=== PATIENT | male | born 1965 | race Caucasian/White ===

== ENCOUNTER 2016-12-26 15:51 | Observation (INO) | payer OTHER ==
[~2016-12-26] VITALS: Ht 177.8 cm; Wt 90.2 kg
--- NOTE | 2016-12-26 16:24 | DIAGNOSTIC IMAGING REPORT ---
PROCEDURE: XR CHEST 1 VIEW INDICATION: CHEST PAIN TECHNIQUE: Portable AP view 04:13 p.m. COMPARISON: None. FINDINGS: Lungs are clear. Heart and mediastinum are normal. Thorax is normal. IMPRESSION: 1. Negative chest.
--- NOTE | 2016-12-26 16:49 | ED CLINICAL REPORT ---
Clinical Report - Physicians/Mid Levels [facility] [address] [place] [address] 12/26/2016 15:53 Patient: CHRISTIAN RUSH Time Seen: 16:04. Arrived- By private vehicle. Historian- patient. History limited by vague historian. HISTORY OF PRESENT ILLNESS Chief Complaint: CHEST PAIN. This started today about 1 hour ago and is still present. It was abrupt in onset and has been constant and waxing/waning. Onset during moderate exertion. At its maximum, severity described as 5 / 10. When seen in the E.D., it was almost gone. It is described as pressure and sharp and it is described as located in the left chest area and radiating to the upper back and to the right upper extremity. The patient has had difficulty breathing and has experienced diaphoresis. Similar symptoms previously: Diagnosis: [place]. REVIEW OF SYSTEMS No chills, fever, cough, abdominal pain or constipation. No diarrhea, nausea, vomiting or urinary problems. He has experienced sweats and had dizziness. He has had moderate calf pain involving the right leg (recently). All systems otherwise negative, except as recorded above. PAST HISTORY Problems: Myocardial Infarction. Heart Disease. Medications: None. Allergies: Aspirin. Probable Moderate (Upset stomach.) Penicillins. SOCIAL HISTORY Current every day light tobacco smoker (cigarette)- less than 1/2 a pack per day. Occasional alcohol use. History of occasional drug use: marijuana. FAMILY HISTORY Premature onset heart disease in first-degree relative (mother). ADDITIONAL NOTES The nursing notes have been reviewed. PHYSICAL EXAM Vital Signs: 12/26/2016 15:57 BP: 134/70. HR: 66. RR: 28. O2 saturation: 99%. Temp: 98.3 F. Pain level now: 4/10. Have been reviewed. Appearance: Alert. Eyes: Pupils equal, round and reactive to light. ENT: Pharynx normal. Neck: Normal inspection. Neck supple. CVS: Normal heart rate and rhythm. Heart sounds normal. Respiratory: No respiratory distress. Breath sounds normal. Abdomen: Soft and nontender. Bowel sounds normal. No organomegaly. No mass. Skin: Skin warm. Normal skin color. Normal skin turgor. Diaphoresis. Extremities: Extremities exhibit normal ROM. No calf tenderness. No lower extremity edema. LABS, X-RAYS, AND EKG EKG: Normal EKG. Rate: 70. Prior EKG unavailable. The study has been independently viewed by me. Chest X-ray: No acute disease. The X-rays were independently viewed by me. Laboratory Tests: UA-Culture if indicated: (XANDER: 12/26/2016 16:45) ( [facility] 12/26/2016 17:26) Final results Test Result Flag Units (Reference) URINE COLOR YELLOW URINE APPEARANCE CLEAR URINE GLUCOSE NEGATIVE (NEGATIVE) URINE BILIRUBIN NEGATIVE (NEGATIVE) URINE KETONE NEGATIVE (NEGATIVE) URINE SPECIFIC GRAVITY <= 1.005 L (1.010-1.030) URINE PH 5.5 (5.0-8.0) URINE PROTEIN NEGATIVE (NEGATIVE) URINE UROBILINOGEN 0.2 EU/dL (0.2-1.0) URINE NITRITE NEGATIVE (NEGATIVE) URINE BLOOD NEGATIVE (NEGATIVE) URINE LEUK ESTERASE NEGATIVE (NEGATIVE) URINE RBC RARE rbc/hpf (0-1) URINE WBC 0-1 wbc/hpf (0-1) URINE EPITHELIAL CELLS RARE EPI/hpf (0-5) URINE BACTERIA NONE SEEN (NONE SEEN) URINE COMMENT CULT NOT INDICATED URINE CULTURES ARE SET-UP BASED ON THE FOLLOWING CRITERIA:POSITIVE NITRITEPOSITIVE LEUKOCYTE ESTERASEGREATER THAN 10 WHITE BLOOD CELLSMODERATE (2+) OR GREATER BACTERIA CBC w Diff: (XANDER: 12/26/2016 16:01) ( [facility] 12/26/2016 16:31) Final results Test Result Flag Units (Reference) WHITE BLOOD COUNT 7.7 K/uL (4.5-11.5) RED BLOOD COUNT 5.05 M/uL (4.50-5.90) HEMOGLOBIN 15.4 gm/dL (13.5-17.5) HEMATOCRIT 45.5 % (41.0-53.0) MEAN CELL VOLUME 90 fL (80-100) MEAN CORPUSCULAR HGB 31 pg (26-34) MEAN CORPUSCULAR HGB CONC 34 g/dL (31-37) RED CELL DISTRIBUTION WIDTH 13.3 % (11.6-14.8) PLATELET COUNT 208 K/uL (150-400) NEUTROPHIL % 51.2 % (50-75) LYMPH % 24.8 L % (25-40) MONO % 19.3 H % (3-14) EOSINOPHIL % 4.0 % (0-4) BASOPHIL % 0.7 % (0-2) PT with INR: (XANDER: 12/26/2016 16:01) ( [facility] 12/26/2016 16:20) Final results Test Result Flag Units (Reference) INR 0.9 (0.8-1.2) Low Intensity Therapy: INR 1.5-2.0 PT range 18.5-23.1Mod.Intensity Therapy: INR 2.0-3.0 PT range 23.1-31.5High Intensity Therapy: INR 2.5-3.5 PT range 27.4-35.5High Intensity Therapy 2: INR 3.0-4.0 PT range 31.5-39.3 APTT 28 SECONDS (24-34) D-DIMER QUANTITATIVE < 0.27 L ug/mLFEU (0.27-0.52) The primary value of this quantitative assay relates toits negative predictive value (i.e. exclusion) of pulmonaryembolism/deep vein thrombosis/DIC.Elevated levels of d-dimer may also occur with:, age, cancer, inflammation, liver disease,post-op, infection, hematoma, coronary disease, peripheralarteriopathy, bleeding disorders and thrombolytic treatment.Results should be correlated with other clinical andradiological data.Testing Methodology: Latex Immunoassay TSH: (XANDER: 12/26/2016 16:01) ( [facility] 12/26/2016 19:06) Final results Test Result Flag Units (Reference) THYROID STIMULATING HORMONE 1.586 uIU/mL (0.34-3.74) CPK: (XANDER: 12/26/2016 20:00) ( [facility] 12/26/2016 20:38) Final results Test Result Flag Units (Reference) CPK 159 U/L (24-260) TROPONIN I <0.05 L ng/mL (0.00-1.5) TROPONIN REFERENCE RANGE:<0.1 NEGATIVE0.1-1.5 INDETERMINANT>1.5 POSITIVE BNP: (XANDER: 12/26/2016 16:01) ( [facility] 12/26/2016 16:35) Final results Test Result Flag Units (Reference) B-TYPE NATRIURETIC PEPTIDE < 5.0 L pg/ml (5-100) CMP: (XANDER: 12/26/2016 16:01) ( [facility] 12/26/2016 16:41) Final results Test Result Flag Units (Reference) GLUCOSE 88 mg/dL (70-110) BUN 16 mg/dL (7-18) CREATININE 1.1 mg/dL (0.6-1.3) Estimated GFR >60 mL/min Estimated GFR- >60 mL/min Note: Persistent reduction over 3 months in eGFR<60 mL/min/1.73 m2 defines CKD. Patients with eGFR values>=60 mL/min/1.73 m2 may also have CKD if evidence ofpersistent proteinuria. Additional information may be foundat www.kidney.org. SODIUM 142 mmol/L (136-145) POTASSIUM 3.7 mmol/L (3.5-5.1) CHLORIDE 106 mmol/L (98-107) CARBON DIOXIDE 24 mmol/L (21-32) CALCIUM 8.7 mg/dL (8.5-10.1) TOTAL PROTEIN 6.8 g/dL (6.4-8.2) ALBUMIN 3.9 g/dL (3.3-5.0) BILIRUBIN, TOTAL 0.7 mg/dL (0.0-1.0) ALKALINE PHOSPHATASE 99 U/L (46-116) AST (SGOT) 23 U/L (15-37) ALT (SGPT) 35 U/L (12-78) LIPASE 147 U/L (73-393) AMYLASE 67 U/L (25-115) CPK 191 U/L (24-260) TROPONIN I <0.05 L ng/mL (0.00-1.5) TROPONIN REFERENCE RANGE:<0.1 NEGATIVE0.1-1.5 INDETERMINANT>1.5 POSITIVE . PROGRESS AND PROCEDURES Course of Care: 18:29 12/26/16. on the electronic device monitor the patient had a brief event of what appears to be atrial flutter. When I discussed this with him he did report that he had some mild palpitations at that time. I reexamined him and my findings were consistent with those previously noted. Discussed case with hospitalist, (Barbie). Reviewed test results and need for additional work-up. Agreed upon decision to place in observation. Patient/family counseled. Old medical records reviewed. (From [facility] in [place]). Disposition: Observation. CLINICAL IMPRESSION Chest pain. Atrial flutter. (Electronically signed by Alton Raza MD 12/27/2016 9:01)
--- NOTE | 2016-12-26 16:49 | ED ORDER SUMMARY ---
..... Patient: CHRISTIAN RUSH OrderSheet [facility] VisitID: [id number] [address] [place] [address] 51y, M Registration Date/Time: 12/26/2016 ORDER SHEET Weight: 90.2 kg Allergies: Penicillins, Aspirin GENERAL ORDERS: Chest 1V Urgent (16:05 12/26/2016 Fina ANDERSON) (Ack 16:08 Humaira) (16:15 omanelli R.N.) Fourdrinier Operator (Continuous) (16:05 12/26/2016 Fina ANDERSON) (16:08 AMcQuoid ER Tech1) CBC w Diff Urgent (16:05 12/26/2016 Fina ANDERSON) (Ack 16:08 Humaira) (16:13 ASchmuck) (16:14 JRomanelli R.N.) CMP Urgent (16:12/26/2016 Fina ANDERSON) (Ack 16:08 Humaira) (16:13 ASchmuck) (16:15 JRomanelli R.N.) UA-Culture if indicated Urgent (16:05 12/26/2016 Fina ANDERSON) (Ack 16:08 Humaira) (17:02 Francescoelli R.N.) PT with INR Urgent (16:05 12/26/2016 Fina ANDERSON) (Ack 16:08 Humaira) (16:13 ASchmuck) (16:15 omanelli R.N.) PTT Urgent (16:05 12/26/2016 Fina ANDERSON) (Ack 16:08 Humaira) (16:13 ASchmuck) (16:15 JRomanelli R.N.) BNP Urgent (16:05 12/26/2016 Fina ANDERSON) (Ack 16:08 Humaira) (16:13 ASchmuck) (16:15 omanelli R.N.) D-Dimer Urgent (16:05 12/26/2016 Fina ANDERSON) (Ack 16:08 Humaira) (16:13 ASchmuck) (16:15 omanelli R.N.) Amylase Urgent (16:05 12/26/2016 Fina ANDERSON) (Ack 16:08 Humaira) (16:13 ASchmuck) (16:15 Gagandeep R.N.) Lipase Urgent (16:05 12/26/2016 Fina ANDERSON) (Ack 16:08 Humaira) (16:13 ASchmuck) (16:15 Francescoelli R.N.) CPK Urgent (16:05 12/26/2016 Fina ANDERSON) (Ack 16:08 Humaira) (16:13 ASchmahsan) (16:15 Gagandeep R.N.) Troponin-I Urgent (16:05 12/26/2016 Fina ANDERSON) (Ack 16:08 Humaira) (16:13 ASchmahsan) (16:15 Gagandeep R.N.) Oxygen (2 L/min) (NC) (16:05 12/26/2016 Fina ANDERSON) (16:08 AMcQuoid ER Tech1) Pulse oximeter (16:05 12/26/2016 Fina ANDERSON) (16:07 AMcQuoid ER Tech1) EKG - ER Stat (16:05 12/26/2016 Fina ANDERSON) (16:07 AMcQuoid ER Tech1) (Ack 16:08 Humaira) CPK (Draw 4 hours after the initial set) Urgent (18:13 12/26/2016 Fina ANDERSON) (Ack 19:00 Humaira) (20:16 AMcQuoid ER Tech1) Troponin-I (Draw 4 hours after the initial set) Urgent (18:13 12/26/2016 Fina ANDERSON) (Ack 19:00 Humaira) (20:16 AMcQuoid ER Tech1) TSH Urgent (18:30 12/26/2016 Fina ANDERSON) (Ack 19:01 Humaira) (20:16 AMcQuoid ER Tech1) MEDICATION ORDERS: Aspirin PO 325 mg (NOW) (16:05 12/26/2016 Fina ANDERSON) (16:11 Gagandeep R.N.) NitroGLYCERIN SL 0.4 mg (NOW) (16:24 12/26/2016 Gagandeep R.N. verbal order read back to Fina ANDERSON) (16:26 Gagandeep R.N.) Nicotine Topical 21 mg (NOW) (17:51 12/26/2016 Steven Rolon verbal order read back to Maureen ANDERSON) (18:03 Steven Rolon) IV FLUIDS: IV Saline Lock (16:05 12/26/2016 Fina ANDERSON) (16:12 Gagandeep Rolon) ORDER SHEET NOTES: [Electronically signed by Nahed Mobley (23:34 12/26/2016)] [Electronically signed by Alton Raza MD (09:01 12/27/2016)] [Electronically locked/signed by Nahed Mobley (23:34 12/26/2016)]
--- NOTE | 2016-12-26 16:49 | ED CLINICAL REPORT ---
Clinical Report - Physicians/Mid Levels [facility] [address] [place] [address] 12/26/2016 15:53 Patient: CHRISTIAN RUSH Time Seen: 16:04. Arrived- By private vehicle. Historian- patient. History limited by vague historian. HISTORY OF PRESENT ILLNESS Chief Complaint: CHEST PAIN. This started today about 1 hour ago and is still present. It was abrupt in onset and has been constant and waxing/waning. Onset during moderate exertion. At its maximum, severity described as 5 / 10. When seen in the E.D., it was almost gone. It is described as pressure and sharp and it is described as located in the left chest area and radiating to the upper back and to the right upper extremity. The patient has had difficulty breathing and has experienced diaphoresis. Similar symptoms previously: Diagnosis: MN. REVIEW OF SYSTEMS No chills, fever, cough, abdominal pain or constipation. No diarrhea, nausea, vomiting or urinary problems. He has experienced sweats and had dizziness. He has had moderate calf pain involving the right leg (recently). All systems otherwise negative, except as recorded above. PAST HISTORY Problems: Myocardial Infarction. Heart Disease. Medications: None. Allergies: Aspirin. Probable Moderate (Upset stomach.) Penicillins. SOCIAL HISTORY Current every day light tobacco smoker (cigarette)- less than 1/2 a pack per day. Occasional alcohol use. History of occasional drug use: marijuana. FAMILY HISTORY Premature onset heart disease in first-degree relative (mother). ADDITIONAL NOTES The nursing notes have been reviewed. PHYSICAL EXAM Vital Signs: 12/26/2016 15:57 BP: 134/70. HR: 66. RR: 28. O2 saturation: 99%. Temp: 98.3 F. Pain level now: 4/10. Have been reviewed. Appearance: Alert. Eyes: Pupils equal, round and reactive to light. ENT: Pharynx normal. Neck: Normal inspection. Neck supple. CVS: Normal heart rate and rhythm. Heart sounds normal. Respiratory: No respiratory distress. Breath sounds normal. Abdomen: Soft and nontender. Bowel sounds normal. No organomegaly. No mass. Skin: Skin warm. Normal skin color. Normal skin turgor. Diaphoresis. Extremities: Extremities exhibit normal ROM. No calf tenderness. No lower extremity edema. LABS, X-RAYS, AND EKG EKG: Normal EKG. Rate: 70. Prior EKG unavailable. The study has been independently viewed by me. Chest X-ray: No acute disease. The X-rays were independently viewed by me. Laboratory Tests: UA-Culture if indicated: (XANDER: 12/26/2016 16:45) ( [facility] 12/26/2016 17:26) Final results Test Result Flag Units (Reference) URINE COLOR YELLOW URINE APPEARANCE CLEAR URINE GLUCOSE NEGATIVE (NEGATIVE) URINE BILIRUBIN NEGATIVE (NEGATIVE) URINE KETONE NEGATIVE (NEGATIVE) URINE SPECIFIC GRAVITY <= 1.005 L (1.010-1.030) URINE PH 5.5 (5.0-8.0) URINE PROTEIN NEGATIVE (NEGATIVE) URINE UROBILINOGEN 0.2 EU/dL (0.2-1.0) URINE NITRITE NEGATIVE (NEGATIVE) URINE BLOOD NEGATIVE (NEGATIVE) URINE LEUK ESTERASE NEGATIVE (NEGATIVE) URINE RBC RARE rbc/hpf (0-1) URINE WBC 0-1 wbc/hpf (0-1) URINE EPITHELIAL CELLS RARE EPI/hpf (0-5) URINE BACTERIA NONE SEEN (NONE SEEN) URINE COMMENT CULT NOT INDICATED URINE CULTURES ARE SET-UP BASED ON THE FOLLOWING CRITERIA:POSITIVE NITRITEPOSITIVE LEUKOCYTE ESTERASEGREATER THAN 10 WHITE BLOOD CELLSMODERATE (2+) OR GREATER BACTERIA CBC w Diff: (XANDER: 12/26/2016 16:01) ( [facility] 12/26/2016 16:31) Final results Test Result Flag Units (Reference) WHITE BLOOD COUNT 7.7 K/uL (4.5-11.5) RED BLOOD COUNT 5.05 M/uL (4.50-5.90) HEMOGLOBIN 15.4 gm/dL (13.5-17.5) HEMATOCRIT 45.5 % (41.0-53.0) MEAN CELL VOLUME 90 fL (80-100) MEAN CORPUSCULAR HGB 31 pg (26-34) MEAN CORPUSCULAR HGB CONC 34 g/dL (31-37) RED CELL DISTRIBUTION WIDTH 13.3 % (11.6-14.8) PLATELET COUNT 208 K/uL (150-400) NEUTROPHIL % 51.2 % (50-75) LYMPH % 24.8 L % (25-40) MONO % 19.3 H % (3-14) EOSINOPHIL % 4.0 % (0-4) BASOPHIL % 0.7 % (0-2) PT with INR: (XANDER: 12/26/2016 16:01) ( [facility] 12/26/2016 16:20) Final results Test Result Flag Units (Reference) INR 0.9 (0.8-1.2) Low Intensity Therapy: INR 1.5-2.0 PT range 18.5-23.1Mod.Intensity Therapy: INR 2.0-3.0 PT range 23.1-31.5High Intensity Therapy: INR 2.5-3.5 PT range 27.4-35.5High Intensity Therapy 2: INR 3.0-4.0 PT range 31.5-39.3 APTT 28 SECONDS (24-34) D-DIMER QUANTITATIVE < 0.27 L ug/mLFEU (0.27-0.52) The primary value of this quantitative assay relates toits negative predictive value (i.e. exclusion) of pulmonaryembolism/deep vein thrombosis/DIC.Elevated levels of d-dimer may also occur with:, age, cancer, inflammation, liver disease,post-op, infection, hematoma, coronary disease, peripheralarteriopathy, bleeding disorders and thrombolytic treatment.Results should be correlated with other clinical andradiological data.Testing Methodology: Latex Immunoassay TSH: (XANDER: 12/26/2016 16:01) ( [facility] 12/26/2016 19:06) Final results Test Result Flag Units (Reference) THYROID STIMULATING HORMONE 1.586 uIU/mL (0.34-3.74) CPK: (XANDER: 12/26/2016 20:00) ( [facility] 12/26/2016 20:38) Final results Test Result Flag Units (Reference) CPK 159 U/L (24-260) TROPONIN I <0.05 L ng/mL (0.00-1.5) TROPONIN REFERENCE RANGE:<0.1 NEGATIVE0.1-1.5 INDETERMINANT>1.5 POSITIVE BNP: (XANDER: 12/26/2016 16:01) ( [facility] 12/26/2016 16:35) Final results Test Result Flag Units (Reference) B-TYPE NATRIURETIC PEPTIDE < 5.0 L pg/ml (5-100) CMP: (XANDER: 12/26/2016 16:01) ( [facility] 12/26/2016 16:41) Final results Test Result Flag Units (Reference) GLUCOSE 88 mg/dL (70-110) BUN 16 mg/dL (7-18) CREATININE 1.1 mg/dL (0.6-1.3) Estimated GFR >60 mL/min Estimated GFR- >60 mL/min Note: Persistent reduction over 3 months in eGFR<60 mL/min/1.73 m2 defines CKD. Patients with eGFR values>=60 mL/min/1.73 m2 may also have CKD if evidence ofpersistent proteinuria. Additional information may be foundat www.kidney.org. SODIUM 142 mmol/L (136-145) POTASSIUM 3.7 mmol/L (3.5-5.1) CHLORIDE 106 mmol/L (98-107) CARBON DIOXIDE 24 mmol/L (21-32) CALCIUM 8.7 mg/dL (8.5-10.1) TOTAL PROTEIN 6.8 g/dL (6.4-8.2) ALBUMIN 3.9 g/dL (3.3-5.0) BILIRUBIN, TOTAL 0.7 mg/dL (0.0-1.0) ALKALINE PHOSPHATASE 99 U/L (46-116) AST (SGOT) 23 U/L (15-37) ALT (SGPT) 35 U/L (12-78) LIPASE 147 U/L (73-393) AMYLASE 67 U/L (25-115) CPK 191 U/L (24-260) TROPONIN I <0.05 L ng/mL (0.00-1.5) TROPONIN REFERENCE RANGE:<0.1 NEGATIVE0.1-1.5 INDETERMINANT>1.5 POSITIVE . PROGRESS AND PROCEDURES Course of Care: 18:29 12/26/16. on the nutrition worker the patient had a brief event of what appears to be atrial flutter. When I discussed this with him he did report that he had some mild palpitations at that time. I reexamined him and my findings were consistent with those previously noted. Discussed case with hospitalist, (Barbie). Reviewed test results and need for additional work-up. Agreed upon decision to place in observation. Patient/family counseled. Old medical records reviewed. (From [facility] in [place]). Disposition: Observation. CLINICAL IMPRESSION Chest pain. Atrial flutter. (Electronically signed by Alton Raza MD 12/27/2016 9:01)
--- NOTE | 2016-12-26 16:49 | ED ORDER SUMMARY ---
..... Patient: CHRISTIAN RUSH OrderSheet [facility] VisitID: [id number] [address] [place] [address] 51y, M Registration Date/Time: 12/26/2016 ORDER SHEET Weight: 90.2 kg Allergies: Penicillins, Aspirin GENERAL ORDERS: Chest 1V Urgent (16:05 12/26/2016 Fina ANDERSON) (Ack 16:08 Humaira) (16:15 omanelli R.N.) Records Officer (Continuous) (16:05 12/26/2016 Fina ANDERSON) (16:08 AMcQuoid ER Tech1) CBC w Diff Urgent (16:05 12/26/2016 Fina ANDERSON) (Ack 16:08 Humaira) (16:13 ASchmuck) (16:14 JRomanelli R.N.) CMP Urgent (16:12/26/2016 Fina ANDERSON) (Ack 16:08 Humaira) (16:13 ASchmuck) (16:15 JRomanelli R.N.) UA-Culture if indicated Urgent (16:05 12/26/2016 Fina ANDERSON) (Ack 16:08 Humaira) (17:02 Francescoelli R.N.) PT with INR Urgent (16:05 12/26/2016 Fina ANDERSON) (Ack 16:08 Humaira) (16:13 ASchmuck) (16:15 omanelli R.N.) PTT Urgent (16:05 12/26/2016 Fina ANDERSON) (Ack 16:08 Humaira) (16:13 ASchmuck) (16:15 JRomanelli R.N.) BNP Urgent (16:05 12/26/2016 Fina ANDERSON) (Ack 16:08 Humaira) (16:13 ASchmuck) (16:15 omanelli R.N.) D-Dimer Urgent (16:05 12/26/2016 Fina ANDERSON) (Ack 16:08 Humaira) (16:13 ASchmuck) (16:15 omanelli R.N.) Amylase Urgent (16:05 12/26/2016 Fina ANDERSON) (Ack 16:08 Humaira) (16:13 ASchmuck) (16:15 Gagandeep R.N.) Lipase Urgent (16:05 12/26/2016 Fina ANDERSON) (Ack 16:08 Humaira) (16:13 ASchmuck) (16:15 Francescoelli R.N.) CPK Urgent (16:05 12/26/2016 Fina ANDERSON) (Ack 16:08 Humaira) (16:13 ASchmahsan) (16:15 Gagandeep R.N.) Troponin-I Urgent (16:05 12/26/2016 Fina ANDERSON) (Ack 16:08 Humaira) (16:13 ASchmahsan) (16:15 Gagandeep R.N.) Oxygen (2 L/min) (NC) (16:05 12/26/2016 Fina ANDERSON) (16:08 AMcQuoid ER Tech1) Pulse oximeter (16:05 12/26/2016 Fina ANDERSON) (16:07 AMcQuoid ER Tech1) EKG - ER Stat (16:05 12/26/2016 Fina ANDERSON) (16:07 AMcQuoid ER Tech1) (Ack 16:08 Humaira) CPK (Draw 4 hours after the initial set) Urgent (18:13 12/26/2016 Fina ANDERSON) (Ack 19:00 Humaira) (20:16 AMcQuoid ER Tech1) Troponin-I (Draw 4 hours after the initial set) Urgent (18:13 12/26/2016 Fina ANDERSON) (Ack 19:00 Humaira) (20:16 AMcQuoid ER Tech1) TSH Urgent (18:30 12/26/2016 Fina ANDERSON) (Ack 19:01 Humaira) (20:16 AMcQuoid ER Tech1) MEDICATION ORDERS: Aspirin PO 325 mg (NOW) (16:05 12/26/2016 Fina ANDERSON) (16:11 Gagandeep R.N.) NitroGLYCERIN SL 0.4 mg (NOW) (16:24 12/26/2016 Gagandeep R.N. verbal order read back to Fina ANDERSON) (16:26 Gagandeep R.N.) Nicotine Topical 21 mg (NOW) (17:51 12/26/2016 Steven Rolon verbal order read back to Maureen ANDERSON) (18:03 Steven Rolon) IV FLUIDS: IV Saline Lock (16:05 12/26/2016 Fina ANDERSON) (16:12 Gagandeep Rolon) ORDER SHEET NOTES: [Electronically signed by Nahed Mobley (23:34 12/26/2016)] [Electronically signed by Alton Raza MD (09:01 12/27/2016)] [Electronically locked/signed by Nahed Mobley (23:34 12/26/2016)]
--- NOTE | 2016-12-26 16:49 | ED NURSING NOTES ---
Clinical Report - Nurses [facility] [address] [place] [address] 12/26/2016 15:53 Patient: CHRISTIAN RUSH TRIAGE Triage time 15:55 Dec 26 2016. Acuity: LEVEL 3. Chief Complaint: CHEST PAIN and DISCOMFORT. Alert. LAMAR COMA SCORE: [place] Coma Scale: 15- eyes open spontaneously (4); best verbal response- oriented x 4 (5); best motor response- obeys commands (6). --16:18 Ricky Mcelroy R.N. 15:57 12/26/16. BP: 134/70. HR: 66. RR: 28. O2 saturation: 99% on room air. Temp: 98.3 F. Pain level now: 09/22. --16:18 Ricky Mcelroy R.N. Weight: 90.2 kg. Height/Length: 70 inches. BMI: 28.5. --16:02 Ricky Mcelroy R.N. Medications None. --16:07 Ricky Mcelroy R.N. Medication/allergy information source: the patient. --16:18 Ricky Mcelroy R.N. Allergies Penicillins. --16:07 Ricky Mcelroy R.N. Aspirin. Probable Moderate (Upset stomach.) --16:08 Ricky Mcelroy R.N. History Arrived by private vehicle. Historian: patient. Accompanied by family. ( Chest Pain starting 1 hour ago located on the (L) side of the chest radiating through to the back. Also confused according to , which concerns her the most. When his picked him up at work, he was dizzy and had the "shakes."). This started just prior to arrival and today. 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 PAST MEDICAL HX: Heart disease. SOCIAL HX: Heavy tobacco smoker (cigarette)- less than 1 pack per day. Alcohol use; consumes four beers a week and five liquor weekly. History of occasional drug use: marijuana. No infectious disease exposure. ABUSE ASSESSMENT: No report of abuse. SELF HARM ASSESSMENT: A self harm assessment was performed. The patient answered "no" to the question "Have you recently felt down, depressed, or hopeless?" and "Have you noticed less interest or pleasure in doing things?". FALL RISK ASSESSMENT: Fall risk assessment completed. No fall risk identified. NUTRITIONAL RISK ASSESSMENT: The nutritional risk assessment revealed no deficiencies. FUNCTIONAL ASSESSMENT: Functional assessment: no impairments noted. LEARNING NEEDS ASSESSMENT: The learning needs assessment revealed no barriers. SKIN INTEGRITY ASSESSMENT: Skin integrity risk assessment completed. No skin integrity risk identified. --16:18 Ricky Mcelroy R.N. Interventions ID and allergy band on patient. To treatment room. --16:18 Ricky Mcelroy R.N. PHYSICAL ASSESSMENT Ambulatory to room. GENERAL / NEURO / PSYCH: Alert. Oriented X 4. Appears in pain. HEENT: Mucous membranes are pink. RESPIRATORY: Respirations not labored. CVS: Normal sinus rhythm noted. GI / : Abdomen soft and nontender. EXTREMITIES: No lower extremity edema. SKIN: Skin is warm and dry. Normal skin turgor. Skin is non-tender. --16:19 Ricky Mcelroy R.N. Ambulatory to room. GENERAL / NEURO / PSYCH: Alert. Oriented X 4. HEENT: Mucous membranes are pink. RESPIRATORY: Respirations not labored. Breath sounds within normal limits. CVS: Normal sinus rhythm noted. Abnormal heart sounds: muffled heart tones (everywhere but apex). GI / : Abdomen soft. EXTREMITIES: No lower extremity edema. SKIN: Skin is warm and dry. --16:22 Ricky Mcelroy R.N. NURSING PROGRESS NOTES 16:01 12/26/2016 Aspirin PO Tablets 325 mg given. Allergies verified and confirmed 5 rights. --16:11 Ricky Mcelroy R.N. 16:02 12/26/2016 Site #1 started via IV in the left antecubital space with an 18g angiocath, with aseptic technique and good blood return; one attempt. Blood drawn: rainbow set. Labeled in the presence of the patient and sent to the lab. Saline lock flushed with 10 mL saline (start by DAVID Nuñez). --16:12 Ricky Mcelroy R.N. 16:04 12/26/2016 Site #2 started via IV in the right antecubital space with an 20g angiocath, with aseptic technique and good blood return; one attempt. Saline lock flushed with 10 mL saline (start by DAVID Stevenson). --16:14 Ricky Mcelroy R.N. Patient gowned. Reassurance given to the patient. Patient identifiers checked. Call light placed in reach. Side rails up x 1. Bed placed in lowest position. Brakes of bed on. Patient ready for evaluation- chart flagged and ED physician notified. --16:19 Ricky Mcelroy R.N. 16:11 12/26/2016 Nitroglycerin SL Tablets 0.4 mg given. Allergies verified and confirmed 5 rights. --16:26 Ricky Mcelroy R.N. 16:15 12/26/16. BP: 123/72. HR: 64. O2 saturation: 100% on nasal cannula at 2 liters/minute. Pain level now: 0/10. --16:43 Ricky Mcelroy R.N. 16:44 12/26/16. BP: 123/72. HR: 58. RR: 16. O2 saturation: 100% on nasal cannula at 2 liters/minute. Pain level now: 0/10. --16:45 Ricky Mcelroy R.N. 16:50. Patient ID band checked for patient name, birthdate and medical record number: patient confirmed. Instructions provided to collect clean catch urine and patient verbalized understanding. Clean catch urine collected with return of tammy-colored clear urine; odor is normal; sample sent to lab for urinalysis and culture. Specimen labeled in the presence of the patient. --17:03 Ricky Mcelroy R.N. 17:03 12/26/16. BP: 111/61. HR: 62. RR: 16. O2 saturation: 99% on nasal cannula at 2 liters/minute. Pain level now: 0/10. --17:04 Ricky Mcelroy R.N. 17:55 12/26/2016 NICOTINE Topical Patch/Pad 21 mg. Applied to the right upper back. Allergies verified and confirmed 5 rights. --18:03 Jayy Gtz R.N. 17:45 12/26/16. BP: 118/79. HR: 61. RR: 16. O2 saturation: 100% on nasal cannula at 2 liters/minute. Pain level now: 0/10. --18:13 Ricky Mcelroy R.N. The plan of care for this patient has been created This plan of care was discussed with the patient. --19:34 Nahed Mobley 19:31 12/26/16. BP: 131/56. HR: 63. RR: 20. O2 saturation: 99% on room air. --19:34 Nahed Mobley ( Lab at bedside drawing second cardiac enzyme set). --19:59 Nahed Mobley 20:40 12/26/16. BP: 133/81. HR: 77. RR: 20. O2 saturation: 98%. Pain level now: 0/10. --20:44 Nahed Mobley ( Provider at bedside discussing plan of care with patient. Patient asking what the purpose of admit is and spouse at bedside discussing plan of care.). --20:45 Nahed Mobley 21:14 12/26/16. BP: 130/78. HR: 70. RR: 20. O2 saturation: 98% on room air. Pain level now: 0/10. --21:14 Nahed Mobley. DISPOSITION / DISCHARGE 21:43 12/26/16. BP: 138/70. HR: 68. RR: 20. O2 saturation: 98% on room air. Pain level now: 0/10. --21:44 Nahed Mobley 21:44 12/26/2016 Site #[address] upon admission; patent, no pain and no signs of infection or infiltration. Flushed with 10 mL saline; flushes easily. --21:44 Nahed Mobley 21:44 12/26/16. Condition at departure: stable. The goals identified in the patient's plan of care were met. Disposition: observation in Acute Care (211). Report was given to a nurse via a phone call. Report included patient's care, treatment, medications, reviewed medication reconcilliation, and condition (including any recent changes or anticipated changes). All questions were answered. Report was acknowledged and care was transferred. (Maximilian HERNANDEZ). Bed obtained. FALL RISK ASSESSMENT: Fall risk assessment completed. No fall risk identified. --21:44 Nahed Mobley 21:45 12/26/2016 Site #[address] upon discharge; patent, no pain and no signs of infection or infiltration. Converted to saline lock and flushed with 10 mL saline; flushes easily. --21:45 Nahed Mobley Patient's personal items include, Knife; items were given to hospital security. --21:51 Janey, Tammy, ER Tech1. Locked/Released at 12/26/2016 23:34 by Nahed Mobley,
--- NOTE | 2016-12-26 21:04 | Progress Note ---
Subjective General Admission History and Physical Examination Patient Name: Mary Perez Admission Date: December 26, 2016 Primary Care Provider: None Attending Physician: Riccardo Thornton M.D. Admitting Physician: Michael Valentin M.D. Code Status:: Room: [facility] Status: Observation, ACU SUBJECTIVE Historian: Patient and family Reliability: Fair Chief Complaint: Chest pain History of Present Illness: The patient is a 51-year-old white male with a significant past medical history of coronary disease status post myocardial infarction, nicotine dependence- smoking who presented to [facility] emergency department on the day of admission secondary to complaints of chest pain. [facility] ER evaluation was consistent with chest pain rule out ACS, atrial flutter, nicotine dependence-smoking. Secondary to the above, the patient was admitted by Michael Valentin M.D. for further evaluation and treatment. The history of present was began on the day of admission when the patient exhibited substernal chest pain. This radiated into the back. It was associated with diaphoresis, mild shortness of breath and mild nausea. He denied any history of vomiting or palpitations. Secondary to persistent pain the patient presented to [facility] emergency department for further evaluation and treatment. [facility] ER evaluation was consistent with chest pain/rule out ACS. The patient's initial EKG and troponin were within normal limits. Follow-up troponin negative. He was noted to have an episode of atrial flutter during his ER visit. Secondary to the above the patient was admitted with a diagnosis of chest pain rule out ACS, atrial flutter, nicotine dependence-smoking for further evaluation and treatment. PAST MEDICAL HISTORY Illnesses: 1. Coronary disease status post myocardial infarction 2. Nicotine dependence-smoking Allergies: 1. Penicillin Medications: 1. Marijuana Surgery: 1. None Injuries: 1. No significant Hospitalizations: 1. Myocardial infarction FAMILY HISTORY Parents: 1. Father, Mary, , 70, cause unknown, 2. Mother, Jessenia, living, 72, diabetes mellitus, depression, questionable cancer Siblings: 1. Male, Denilson, , 45, accidental in fire Children: 1. Male, Sukhdeep, living, 21, healthy Other significant family history: Cancer SOCIAL HISTORY 1. Marital Status: 2. Rastafarian: Alevism-taoism 3. Education: High school and vocational education 4. 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 Occupational health exposures: Dust, loud noises, heavy lifting HABITS 1. Tobacco: Cigarettes-30 pack years, one half pack per day 2. Drugs: Marijuana 3. Alcohol: 6 ounces per week 4. Caffeine: Coffee-2 cups per day HEALTH SUPERVISION Item/Test 1. Dental exam: 2016 IMMUNIZATIONS: 1. Pneumococcal: No previous 2. Influenza: No previous 3. Tetanus: No previous ADVANCED DIRECTIVES: 1. Living well: No 2. POLST: No 3. Code Status: FULL CODE 4. Durable Power Rn Spine Health care: No 5. Donor card: Yes REVIEW OF SYSTEMS Remarkable for those things stated in the history of present illness and past medical history. Seventeen point review of system completed with the following notable findings: General: Pain Eyes: Blurred vision, visual loss Mouth: Dental problems Cardiovascular: Chest tightness, irregular heartbeat, rapid heartbeat Musculoskeletal: Joint stiffness, joint pain, joint swelling, muscular pain, backache Neurological: Balance problems, sensation changes Psychological: Difficulty sleeping Physical Exam Vital Signs / I&Os Blood pressure: 134/70 mmHg Heart rate: 66/minute Respiratory rate: 28/minute Temperature: 98.3 Fahrenheit orally Pulse oximetry: 99% room air General Appearance Alert, Oriented X3, Cooperative, No acute distress HEENT Atraumatic, PERRLA, EOMI, Moist mucous membranes Lungs Clear to auscultation, Normal air movement Neck Supple, No JVD Cardiovascular Regular rate and rhythm, Normal S1 and S2, No murmurs, gallops, rubs Abdomen Normal bowel sounds, Soft, No tenderness, No guarding Extremities No cyanosis, No clubbing, No edema, Normal pulses Neurological Cranial nerves intact, Strength 5/5 x4 ext's, No lateralizing signs Psych/Mental Status Mental status normal, Mood normal LAB Results Laboratory Tests 12/26 1645 1601 1601 Chemistry Plasma Magnesium (1.8 - 2.4 mg/dL) 1.8 Creatine Kinase (24 - 260 U/L) 159 Troponin (0.00 - 1.5 ng/mL) <0.05 Triglycerides (30 - 200 mg/dL) 134 Cholesterol (140 - 200 mg/dL) 184 LDL Cholesterol, Calc (mg/dL) 128 HDL Cholesterol (32 - 96 mg/dL) 30 LDL/HDL Ratio 4.3 Cholesterol/HDL Ratio 6.1 Coronary Risk Interp (0.4 - 1.0) 1.2 TSH 3rd Generation (0.34 - 3.74 uIU/mL) 1.586 Urines Urine Color YELLOW Urine Appearance CLEAR Urine pH (5.0 - 8.0) 5.5 Ur Specific [place] (1.010 - 1.030) <= 1.005 Urine Protein (NEGATIVE) NEGATIVE Urine Ketones (NEGATIVE) NEGATIVE Urine Blood (NEGATIVE) NEGATIVE Urine Nitrite (NEGATIVE) NEGATIVE Urine Bilirubin (NEGATIVE) NEGATIVE Urine Urobilinogen (0.2 - 1.0 EU/dL) 0.2 Ur Leukocyte Esterase (NEGATIVE) NEGATIVE Urine RBC (0 - 1 rbc/hpf) RARE Urine WBC (0 - 1 wbc/hpf) 0-1 Ur Epithelial Cells (0 - 5 EPI/hpf) RARE Urine Bacteria (NONE SEEN) NONE SEEN Urine Glucose (NEGATIVE) NEGATIVE Urine Comment CULT NOT INDICATED 12/26 12/26 1601 1601 Chemistry Plasma Sodium (136 - 145 mmol/L) 142 Plasma Potassium (3.5 - 5.1 mmol/L) 3.7 Plasma Chloride (98 - 107 mmol/L) 106 CO2 (Enzymatic) (21 - 32 mmol/L) 24 BUN (7 - 18 mg/dL) 16 Creatinine (0.6 - 1.3 mg/dL) 1.1 Est GFR ( Amer) (mL/min) >60 Est GFR (Non-Af Amer) (mL/min) >60 Glucose (70 - 110 mg/dL) 88 Plasma Calcium (8.5 - 10.1 mg/dL) 8.7 Total Bilirubin (0.0 - 1.0 mg/dL) 0.7 AST (15 - 37 U/L) 23 ALT (12 - 78 U/L) 35 Alkaline Phosphatase (46 - 116 U/L) 99 Creatine Kinase (24 - 260 U/L) 191 Troponin (0.00 - 1.5 ng/mL) <0.05 B-Natriuretic Peptide (5 - 100 pg/ml) < 5.0 Total Protein (6.4 - 8.2 g/dL) 6.8 Albumin (3.3 - 5.0 g/dL) 3.9 Amylase (25 - 115 U/L) 67 Lipase (73 - 393 U/L) 147 Coagulation INR (0.8 - 1.2) 0.9 APTT (24 - 34 SECONDS) 28 D-Dimer, Quantitative (0.27 - 0.52 ug/mLFEU) < 0.27 Hematology WBC (4.5 - 11.5 K/uL) 7.7 RBC (4.50 - 5.90 M/uL) 5.05 Hgb (13.5 - 17.5 gm/dL) 15.4 Hct (41.0 - 53.0 %) 45.5 MCV (80 - 100 fL) 90 MCH (26 - 34 pg) 31 RDW (11.6 - 14.8 %) 13.3 Neut % (Auto) (50 - 75 %) 51.2 Lymph % (Auto) (25 - 40 %) 24.8 [place] % (Auto) (3 - 14 %) 19.3 Eos % (Auto) (0 - 4 %) 4.0 Baso % (Auto) (0 - 2 %) 0.7 Plt Count, EDTA (150 - 400 K/uL) 208 PUBS MCHC (31 - 37 g/dL) 34 Imaging Chest X-Ray IMPRESSION: 1. Negative chest. Dictated by: BERTHA RICARDO MD D: LILLY;12/26/16 [id number] Assessment and Plan Problem List 1. Chest pain Status Acute Onset Date Unknown Plan -Patient presents with history of chest pain -Admission EKG/troponin unremarkable -Patient without chest pain at this time -Serial troponin/EKG -Aspirin, nitroglycerin, beta miah, Lovenox -Obtain lipid profile consider statin -Encourage smoking cessation program/smoking cessation education -Consider stress test if above negative 2. Atrial flutter Status Acute Onset Date Unknown Plan -Episode of atrial flutter in the emergency department -Lopressor 25 mg by mouth twice a day -Thyroid function tests within normal limits -Echocardiogram to be performed as outpatient -Monitor 3. Nicotine dependence Status Chronic Onset Date Unknown Plan -The patient presents with history of nicotine dependence smoking -Smoking cessation education -Encourage smoking abstinence post discharge -NicoDerm patch when necessary 4. Hypertension Status Acute Onset Date Unknown Plan -The patient experienced labile hypertension in the emergency department -Monitor -Lopressor 25 mg by mouth twice a day -Low-salt diet 5. Monocytosis Status Acute Onset Date Unknown Plan -Patient with findings of monocytosis -Recheck in a.m. with manual differential -Monitor Current status: Fair, unstable Anticipated discharge date: Anticipated discharge within 24 hours Anticipated discharge placement: Home Patient care time: Time in chart review, patient interview, physical exam, CPOE, and care documentation: 70 mins Visit to patient today: 2 Complexity of care: High DVT prophylaxis: Lovenox E&M Codes Admission: Obsv-Comp/High/[id number]
[2016-12-26 22:25] VITALS: BP 140/81
[2016-12-27 02:30] VITALS: BP 120/79
[2016-12-27 06:57] VITALS: BP 95/62
[2016-12-27 08:41] VITALS: BP 105/65
--- NOTE | 2016-12-27 09:01 | ED MED RECONCILIATION SUMMARY ---
Patient: CHRISTIAN RUSH Medication Reconciliation Report [facility] VisitID: [id number] [address] [place] [address] 51y, M Registration Date/Time: 12/26/2016 Weight: 90.2 kg Height/Length: 70 in. BMI: 28.5 ALLERGIES: Aspirin, Penicillins The patient's Home Medications are listed below: NONE. The source(s) of the original Home Medication information: patient The following Medications were given to the patient in the Emergency Department: Aspirin [PO] PO 325 mg, administered: 12/26/2016 4:01:00 PM Nitroglycerin [SL] SL 0.4 mg, administered: 12/26/2016 4:11:00 PM NICOTINE [TOPICAL] Topical 21 mg, administered: 12/26/2016 5:55:00 PM The following Medications were prescribed to the patient: None.
--- NOTE | 2016-12-27 09:01 | ED MAR SUMMARY ---
..... Medication Administration Record [facility] [address] [place] [address] Patient: CHRISTIAN RUSH Visit ID: [id number] 51y, M Weight: 90.2 kg Height/Length: 70 in BMI: 28.5 ALLERGIES: Aspirin, Penicillins Given 16:01 12/26/2016 Ricky Mcelroy RDellNDell Medication Administered: ASPIRIN [PO], Dose: 325 mg Tablets PO. Medication Ordered: Aspirin PO 325 mg (NOW). Given 16:11 12/26/2016 Ricky Mcelroy RDellNDell Medication Administered: NITROGLYCERIN [SL], Dose: 0.4 mg Tablets SL. Medication Ordered: NitroGLYCERIN SL 0.4 mg (NOW). Given 17:55 12/26/2016 Jayy Gtz R.N. Medication Administered: NICOTINE [TOPICAL], Dose: 21 mg Patch/Pad Topical. Medication Ordered: Nicotine Topical 21 mg (NOW).
--- NOTE | 2016-12-27 09:01 | ED MED RECONCILIATION SUMMARY ---
Patient: CHRISTIAN RUSH Medication Reconciliation Report [facility] VisitID: [id number] [address] [place] [address] 51y, M Registration Date/Time: 12/26/2016 Weight: 90.2 kg Height/Length: 70 in. BMI: 28.5 ALLERGIES: Aspirin, Penicillins The patient's Home Medications are listed below: NONE. The source(s) of the original Home Medication information: patient The following Medications were given to the patient in the Emergency Department: Aspirin [PO] PO 325 mg, administered: 12/26/2016 4:01:00 PM Nitroglycerin [SL] SL 0.4 mg, administered: 12/26/2016 4:11:00 PM NICOTINE [TOPICAL] Topical 21 mg, administered: 12/26/2016 5:55:00 PM The following Medications were prescribed to the patient: None.
--- NOTE | 2016-12-27 09:01 | ED DISCHARGE INSTRUCTIONS ---
Patient: CHRISTIAN RUSH General Instructions [facility] VisitID: [id number] [address] [place] [address] 51y, M Registration Date/Time: 12/26/2016 Chest pain. Atrial flutter. (Electronically signed by Alton Raza MD 12/27/2016 9:01)
--- NOTE | 2016-12-27 09:01 | ED MAR SUMMARY ---
..... Medication Administration Record [facility] [address] [place] [address] Patient: CHRISTIAN RUSH Visit ID: [id number] 51y, M Weight: 90.2 kg Height/Length: 70 in BMI: 28.5 ALLERGIES: Aspirin, Penicillins Given 16:01 12/26/2016 Ricky Mcelroy RDellNDell Medication Administered: ASPIRIN [PO], Dose: 325 mg Tablets PO. Medication Ordered: Aspirin PO 325 mg (NOW). Given 16:11 12/26/2016 Ricky Mcelroy RDellNDell Medication Administered: NITROGLYCERIN [SL], Dose: 0.4 mg Tablets SL. Medication Ordered: NitroGLYCERIN SL 0.4 mg (NOW). Given 17:55 12/26/2016 Jayy Gtz R.N. Medication Administered: NICOTINE [TOPICAL], Dose: 21 mg Patch/Pad Topical. Medication Ordered: Nicotine Topical 21 mg (NOW).
--- NOTE | 2016-12-27 09:01 | ED DISCHARGE INSTRUCTIONS ---
Patient: CHRISTIAN RUSH General Instructions [facility] VisitID: [id number] [address] [place] [address] 51y, M Registration Date/Time: 12/26/2016 Chest pain. Atrial flutter. (Electronically signed by Alton Raza MD 12/27/2016 9:01)
[2016-12-27 11:05] VITALS: BP 115/64
--- NOTE | 2016-12-27 11:39 | Provider's Discharge Care Plan ---
Problem, Goal, Plan Problem List 1. Chest pain Instructions: Stop smoking, - obtain stress test and echocardiogram 2. Hypertension Instructions: Take meds as directed
--- NOTE | 2016-12-27 11:39 | Provider's Discharge Care Plan ---
Problem, Goal, Plan Problem List 1. Chest pain Instructions: Stop smoking, - obtain stress test and echocardiogram 2. Hypertension Instructions: Take meds as directed
[2016-12-27] MEDS ORDERED: ASPIRIN81 M1 PO (11:41)
[2016-12-27] MEDS ORDERED: LOPRESSOR25 MG PO (11:41)
== END 2016-12-27 12:10 | disposition home or self-care (01) ==
LOC: ED SRH 15:51 → TRANS SRH 17:05 → ACUTE2 SRH 22:07
PROVIDERS: ADMIT Internal Medicine
DX: R07.9 Chest pain, unspecified (principal); I48.92 Unspecified atrial flutter; R11.0 Nausea; I10 Essential (primary) hypertension; I25.10 Atherosclerotic heart disease of native coronary artery without angina pectoris; D72.821 Monocytosis (symptomatic); F17.210 Nicotine dependence, cigarettes, uncomplicated; I25.2 Old myocardial infarction; Z82.49 Family history of ischemic heart disease and other diseases of the circulatory system
CPT/HCPCS: 29230; 29243; 29248; 29251; 90004; 90047; 90074; 90100; 90616; 91320; 91556; 92235; 92530; 92610; 92690; 92720; 93140; 94001; 94060; 95059